=== PATIENT | female | born 2000 | race Asian ===

== ENCOUNTER 2022-05-30 12:56 | Emergency (ER) | payer MEDICAID ==
[~2022-05-30] VITALS: Ht 170.2 cm; Wt 54.0 kg
[2022-05-30 13:01] VITALS: BP 114/71
[2022-05-30] MEDS ORDERED: ONDANSETRON 4 MG ODT PO ONE (13:25)
[2022-05-30] MEDS ORDERED: ALUMINUM HYD/MAG/SIMETHICONE 30 ML UDC PO ONE (13:25)
[2022-05-30] MEDS ORDERED: FAMOTIDINE 20 MG TAB PO ONE (13:25)
--- NOTE | 2022-05-30 13:31 | NUR ---
PT AMBULATED WITH VISITOR TO BED 07
--- NOTE | 2022-05-30 13:31 | NUR ---
Blood for labwork drawn from [facility]. Patient tolerated.
[2022-05-30 13:44] LABS: BASOPHILS % (AUTO) 0.9 % (0.0-2.0); EOSINOPHILS # (AUTO) 0.3 K/uL (0-0.4); EOSINOPHILS % (AUTO) 5.7 % (0.0-4.0); HEMATOCRIT 34.6 % (36-48); HEMOGLOBIN 11.1 g/dL (12.0-16.0); LYMPHOCYTES # (AUTO) 1.3 K/uL (2.5-16.5); LYMPHOCYTES % (AUTO) 26.9 % (20.5-51.1); MEAN CORPUSCULAR HEMOGLOBIN 24 pg (27-31); MEAN CORPUSCULAR HGB CONC 32 g/dL (33-37); MEAN CORPUSCULAR VOLUME 74.1 fL (80-94); MONOCYTES # (AUTO) 0.3 K/uL (0.8-1.0); MONOCYTES % (AUTO) 6.2 % (1.7-9.3); NEUTROPHILS % (AUTO) 60.3 % (42.2-75.2); PLATELET COUNT (AUTO) 358 K/uL (140-450); RED BLOOD CELL COUNT(AUTO) 4.67 MIL/uL (4.20-5.40)
[2022-05-30 13:44] LABS: APPEARANCE,URINE CLEAR (CLEAR); BILIRUBIN,URINE NEGATIVE (NEGATIVE); BLOOD, URINE NEGATIVE (NEGATIVE); COLOR,URINE YELLOW (YELLOW); LEUKOCYTE ESTERASE ,URINE NEGATIVE (NEGATIVE); NITRITE, URINE NEGATIVE (NEGATIVE); UGLUCOSE NEGATIVE (NEGATIVE)
--- NOTE | 2022-05-30 13:45 | NUR ---
21 y/o female bib family for c/o epigastric pain that started yesterday. Patient reports taking TUMS for symptoms with minimal relied. Patient denies any new foods or sick contacts. Denies any chills, fevers or diarrhea. Patient reports nausea and vomiting. Medical History: Denies NKDA
[2022-05-30 14:04] LABS: ANION GAP 10.4 (8-16); CARBON DIOXIDE 29.4 mmol/L (21-32); CREATININE 0.7 mg/dL (0.6-1.3); POTASSIUM 3.8 mmol/L (3.5-5.1); TOTAL BILIRUBIN 0.4 mg/dL (0.0-1.0)
--- NOTE | 2022-05-30 14:11 | NUR ---
Dr. Ga re-evaluating patient at bedside.
[2022-05-30] MEDS ORDERED: DICYCLOMINE 20 MG/2 ML VIAL IM ONE (14:15)
[2022-05-30] MEDS ORDERED: ONDA-188 SL (14:18)
[2022-05-30] MEDS ORDERED: BEN10 PO (14:18)
[2022-05-30] MEDS ORDERED: FAMO-90 PO (14:18)
[2022-05-30 15:17] VITALS: BP 104/60
--- NOTE | 2022-05-30 15:17 | NUR ---
Patient discharged with v/s stable. Written and verbal after care instructions given. Patient alert, oriented and verbalized understanding of instructions. Ambulatory with steady gait. All questions addressed prior to discharge. ID band removed. Patient advised to follow up with PMD. Rx of Bentyl, Pepcid and Zofran given. Opportunity to ask questions provided and answered. COPY OF LABWORK GIVEN TO PATIENT.
--- NOTE | 2022-05-30 15:18 | NUR ---
The patient's care was reviewed and supervised by Alma Delia Damon, RN, RN.
== END 2022-05-30 15:17 | disposition home or self-care (01) ==
LOC: MED 12:56
DX: R11.2 Nausea with vomiting, unspecified (principal); R10.13 Epigastric pain; T41.295A Adverse effect of other general anesthetics, initial encounter; Z79.899 Other long term (current) drug therapy; Y92.89 Other specified places as the place of occurrence of the external cause
CPT/HCPCS: 36415; 80053; 81003; 81025; 83690; 85025; 96372; 99284; J0500; Q0162

== ENCOUNTER 2022-09-26 05:15 | Emergency (ER) | payer MEDICAID ==
[~2022-09-26 05:15] MED LIST: BEN10 PO; FAMO-90 PO; ONDA-188 SL
== END 2022-09-26 05:31 | disposition left against medical advice (07) ==
LOC: MED 05:15
DX: R10.9 Unspecified abdominal pain (principal); Z53.21 Procedure and treatment not carried out due to patient leaving prior to being seen by health care provider